=== PATIENT | female | born 1995 | race Caucasian/White ===

== ENCOUNTER 2024-02-05 11:37 | Outpatient (CLI) | payer OTHER, SELFPAY | END 2024-02-05 11:38 | disposition home or self-care (01) | LOC: NFLDREF 11:58 | PROVIDERS: Visit Provider Physician Assistant | DX: N30.00 Acute cystitis without hematuria (principal) | CPT/HCPCS: 87086 ==

== ENCOUNTER 2024-09-22 13:08 | Outpatient (CLI) | payer BC, SELFPAY | END 2024-09-22 13:09 | disposition home or self-care (01) | PROVIDERS: Visit Provider Obstetrics & Gynecology | DX: N91.5 Oligomenorrhea, unspecified (principal); Z31.69 Encounter for other general counseling and advice on procreation | CPT/HCPCS: 83001; 83498; 83520; 84146; 84270; 84402; 84403; 84443; 86706; 86762; 86787 ==

== ENCOUNTER 2024-10-26 09:51 | Outpatient (CLI) | payer BC, SELFPAY | END 2024-10-26 09:52 | disposition home or self-care (01) | LOC: US 09:54 | PROVIDERS: Visit Provider Obstetrics & Gynecology | DX: N91.5 Oligomenorrhea, unspecified (principal); R93.89 Abnormal findings on diagnostic imaging of other specified body structures; N83.01 Follicular cyst of right ovary; N83.02 Follicular cyst of left ovary | CPT/HCPCS: 76830; 76856 ==

== ENCOUNTER 2024-12-07 12:36 | Outpatient (CLI) | payer BC, SELFPAY ==
--- NOTE | 2024-12-07 13:00 | CRLHL7_ITS ---
For Patients: As a result of the Century Cures Act, medical imaging exams and procedure reports are released immediately into your electronic medical record. You may view this report before your referring provider. If you have questions, please contact your health care provider. OBSTETRICAL ULTRASOUND TRANSVAGINAL, 12/07/2024 CLINICAL INDICATION: Dating and viability. LMP: 10/08/2024 DELL by LMP: 07/15/2025 Gestational age: 8 weeks 4 days Previous ultrasound: No TECHNIQUE: Real-time galvez-scale imaging of the fetus was performed transvaginal. FINDINGS: CRL: 1.3 cm, 7 weeks 3 days; DELL 07/23/2025 heart rate: 152 BPM Gestational sac: 2.9 cm, appears within normal limits Yolk sac: 2.6 mm, appears within normal limits Right ovary: 3.3 x 2.4 x 3.0 cm, CL Left ovary: 4.3 x 1.9 x 1.9 cm IMPRESSION: 1. Single living intrauterine with sonographic gestational age of 7 weeks 3 days and sonographic due date of 07/23/2025. 2. Corpus luteal cyst of right ovary. Right-sided intramural fibroid measures 11 x 11 x 7 mm. YURIY VELAZQUEZ M.D. Diagnostic Radiologist [email or web address] Transcribed: 4:[address]/Dictated by: Yuriy Velazquez MD @ 12/07/2024 2:52:00 PM (Electronically Signed)
== END 2024-12-07 12:37 | disposition home or self-care (01) ==
LOC: US 12:37
PROVIDERS: Visit Provider Advanced Practice Midwife
DX: Z34.91 Encounter for supervision of normal pregnancy, unspecified, first trimester (principal); O34.81 Maternal care for other abnormalities of pelvic organs, first trimester; N83.11 Corpus luteum cyst of right ovary; Z3A.08 8 weeks gestation of pregnancy
CPT/HCPCS: 76817; 83021; 86592; 86703; 86704; 86706; 86762; 86787; 86803; 86850; 86900; 86901; 87086; 87340; 87491; 87591

== ENCOUNTER 2025-01-04 09:25 | Outpatient (CLI) | payer BC, SELFPAY | END 2025-01-04 09:26 | disposition home or self-care (01) | LOC: NFLDREF 01-09 05:55 | PROVIDERS: Visit Provider Obstetrics & Gynecology | DX: O99.281 Endocrine, nutritional and metabolic diseases complicating pregnancy, first trimester (principal); Z3A.11 11 weeks gestation of pregnancy; E03.8 Other specified hypothyroidism | CPT/HCPCS: 84439; 84443; 86376 ==

== ENCOUNTER 2025-02-01 11:10 | Outpatient (CLI) | payer BC, SELFPAY | END 2025-02-01 11:11 | disposition home or self-care (01) | LOC: NFLDREF 11:14 | PROVIDERS: Visit Provider Advanced Practice Midwife | DX: E03.8 Other specified hypothyroidism (principal) | CPT/HCPCS: 84443 ==

== ENCOUNTER 2025-03-01 10:59 | Outpatient (CLI) | payer BC, SELFPAY ==
--- NOTE | 2025-03-01 11:15 | CRLHL7_ITS ---
For Patients: As a result of the Century Cures Act, medical imaging exams and procedure reports are released immediately into your electronic medical record. You may view this report before your referring provider. If you have questions, please contact your health care provider. OB ULTRASOUND GREATER THAN 14 WEEKS, 03/01/2025 CLINICAL HISTORY: anatomy survey. COMPARISON: 12/07/2024. TECHNIQUE: Real time galvez scale imaging of the fetus was performed. Transabdominal imaging performed. FINDINGS: DELL by US: 07/23/2025. GA: 19 weeks 3 days. Position: Multiple positions. Placenta/Cord: Posterior. Technique: TA. Placenta tip to internal OS: 6.0 cm. Umbilical Cord: 3 vessel cord. Placental Insertion: Central. Amniotic Fluid: 2.8 cm SDP. Cervix: Visualized. Technique: TA. Length of closed cervix: 4.3 cm. Observed Structures: Calvarium/Spine Cerebellum 2.0 cm, 20 weeks 5 days Cisterna Magna 2.8 mm Nuchal Fold 3.8 mm Lateral Ventricle 5.3 mm CSP Midline Falx Choroid Plexus Spine Abdomen: Stomach Abd Cord Insert Urinary Bladder Kidneys Diaphragm Face: Nose/Lips Orbital view Profile Limbs: Upper extremities Lower extremities Hands Feet Vascular: 4 Ch Heart LVOT RVOT 3VV 3VTV BIOMETRY: BPD: 4.4 cm, 19 weeks 3 days. 47.6% HC: 16.5 cm, 19 weeks 2 days. 33.0% AC: 15.0 cm, 20 weeks 2 days. 73.2% FL: 3.1 cm, 19 weeks 5 days. 54.9% FL/AC: 29.88% HC/AC Ratio: 1.10. Heart Rate: 154 bpm. Age by this US: 19 weeks 6 days. DELL by this US: 07/20/2025. EFW: 321.84 g, 0 lb 11 oz. Percentile by DELL: 75.0% IMPRESSION: 1. Concordance of clinical and sonographic dating. 2. Normal anatomic survey. Yuriy Pak M.D. Diagnostic Radiologist [email or web address] Transcribed: 1:34 pm DW/Dictated by: Yuriy Pak MD @ 03/01/2025 12:06:00 PM (Electronically Signed)
== END 2025-03-01 11:00 | disposition home or self-care (01) ==
LOC: US 11:00
PROVIDERS: Visit Provider Advanced Practice Midwife
DX: Z34.92 Encounter for supervision of normal pregnancy, unspecified, second trimester (principal); Z3A.19 19 weeks gestation of pregnancy
CPT/HCPCS: 76805

== ENCOUNTER 2025-04-26 16:39 | Outpatient (CLI) | payer BC, SELFPAY | END 2025-04-26 16:40 | disposition home or self-care (01) | LOC: NFLDREF 05-01 04:55 | PROVIDERS: Visit Provider Midwife | DX: E03.8 Other specified hypothyroidism (principal) | CPT/HCPCS: 84443 ==

== ENCOUNTER 2025-05-24 08:30 | Outpatient (CLI) | payer BC, SELFPAY | END 2025-05-24 08:31 | disposition home or self-care (01) | LOC: NFLDREF 08:31 | PROVIDERS: Visit Provider Advanced Practice Midwife | DX: Z34.03 Encounter for supervision of normal first pregnancy, third trimester (principal) | CPT/HCPCS: 87086 ==

== ENCOUNTER 2025-06-28 09:45 | Outpatient (RCR) | payer BC, SELFPAY | END 2025-08-01 11:36 | disposition home or self-care (01) | PROVIDERS: Visit Provider Advanced Practice Midwife | DX: R10.20 Pelvic and perineal pain unspecified side (principal); N94.2 Vaginismus; Z3A.20 20 weeks gestation of pregnancy; Z51.89 Encounter for other specified aftercare | CPT/HCPCS: 97110; 97112; 97161; 97530; 97535 ==

== ENCOUNTER 2025-06-28 13:53 | Outpatient (CLI) | payer BC, SELFPAY | END 2025-06-28 13:54 | disposition home or self-care (01) | LOC: NFLDREF 06-30 12:24 | PROVIDERS: Visit Provider Advanced Practice Midwife | DX: Z34.93 Encounter for supervision of normal pregnancy, unspecified, third trimester (principal) | CPT/HCPCS: 87081; 87653 ==

== ENCOUNTER 2025-07-13 19:54 | Inpatient (IN) | payer BC, SELFPAY ==
[2025-07-13 19:08] VITALS: BP 132/77; PULSE 64
[2025-07-13 19:23] LABS: Amnisure Rom* POSITIVE
--- NOTE | 2025-07-13 20:42 | P.LDBA_ITS ---
Subjective History of Present Illness Narrative: Modesta is being admitted to Labor and Delivery for PROM. She is a 29 year old at 38.4 weeks gestation. Her full history and physical was dictated by Dash Campos CNM on 07/05/25. Please see this for details. She is unsure when her water broke today. States that she had some pink bleeding around 0430 this morning and the amount of pink tinged discharge has increased throughout the day. She continues to have small amount of fluid noted with SVE. Given that we don't know for sure when ROM occurred we will assume it was at 0430. She has felt cramping with occasional back pain throughout the day but is unsure on how often. Contractions on the TOCO were Q 8-10 minutes and tracing was reactive. We discussed expectant management vs augmentation with Pitocin or PO Cytotec. Reviewed risks with prolonged ROM and she is agreeable to Pitocin titration. On SVE she was 1.5/80/-2, she tolerated the SVE very well. Vertex confirmed by bedside US. Specific Issues/Plans G1 P 0 Partner: Roberto HAYS Pt is adopted. It is a girl! H&P completed by Dash Campos CNM on 07/05/25? # Subclinical Hypothyroid: was started on 25mcg levothyroxine prior to finally achieving ? TSH: 01/04/25: TSH 2.990, free T4. Recommend increase in levothyroxine dose to 37.5 mcg and repeat TSH and free T4 in 4 weeks. 02/01/25: 1.920 04/26: 1.030 # Pelvic pain/vaginismus Pain with intercourse Recommended pelvic floor pt, referral placed 02/01/2025 # Anemia in : 9.9 at 27w-started on iron PO qod with Vit c. Increased to 10.9. ? Imaging:? 1st trimester: 12/07/2024 8 4/7 weeks by LMP, 7 3/7 weeks by u/s? DELL: 07/23/25 by 1st trimester u/s?, SLIUP, 1 cm fibroid noted.?? Anatomy scan: 03/01/25 75% EFW 1. Concordance of clinical and sonographic dating. 2. Normal anatomic survey. Others: []? ? COVID: declined Flu: declined TDAP: 05/10/25 RSV:06/07/25 Hep b non-immune: does not work in healthcare 32wk mental health: 34wk hgb: OB - Problem Based A/P Additional Plan (1) PROM (premature rupture of membranes): Status: Acute (2) 38 weeks gestation of : Status: Acute (3) Vaginismus: Status: Acute (4) Subclinical hypothyroidism: Status: Acute (5) Anemia: Status: Acute Plan ASSESSMENT:? at 38.4 weeks gestation? GBS negative? ?complicated by: Anemia, hypothyroidism, vaginismus Labor type: prolonged PROM (>16hrs) Blood type: O+ ?? PLAN:? 1. Reviewed risks and benefits of augmentation with Pitocin or Cytotec vs expectant management. Agreeable to Pitocin augmentation given unknown and likely prolonged ROM. Pt prefers Cytotec. Pitocin to follow if needed.? 2. Candidate for analgesia of choice. Planning unmedicated .? 3. Anticipate ? 4. Expectant management at this time.? 5. IV placement for Pitocin augmentation. 6. Continuous monitoring per policy. Delivery/Labor/Induction Plan Plan: other (augmentation ) Induction method: per pitocin protocol OB Result Labs Blood Type: O (+) positive Rubella: immune RPR/VDLR: nonreactive GBS Status: negative HBsAG: negative OB Exam Physical Exam Vital signs: Pulse BP 64 132/77 07/13/25 19:08 07/13/25 19:08 Narrative: Psychiatric:? Alert and oriented x3? HEENT:? Normocephalic, atraumatic? Neck:? Supple without adenopathy or thyromegaly? Lungs:? Clear to auscultation bilaterally? Heart:? Regular rate and rhythm, no murmur, rub or gallop? Abdomen:? Soft, nontender, and gravid? Extremities:? No edema or erythema? Detailed Labor and Delivery Exam Patient Gravid: yes Dilation (cm): 1 (1.5) Effacement (%): 80 Cervix position: mid Consistency: medium Contraction Frequency: 8-10 Tachysystole: No Contraction intensity: Mild Fetus (Single) Station: -2 Amniotic Membrane Status: SROM Amniotic Membrane Fluid Description: Clear and [place] Heart Rate Baseline: 135 Monitor Accelerations: Present Monitor Decelerations: None Skilled Nursing Variability: Moderate (6-25)
[2025-07-13 21:01] VITALS: BMI 31.4
[2025-07-13 21:53] VITALS: RESP 16; TEMP 36.6
[2025-07-13 22:07] LABS: Hematocrit* 37.7 % (33.0-51.0); Hemoglobin* 12.5 gm/dL (12.0-16.0); Immature Granulocytes Abs Auto 0.04 K/uL (0.00-0.30); Immature Granulocytes Pct Auto 0.5 %; Lymphocytes Absolute Auto 2.00 K/uL (0.90-2.90); Mean Corpuscular HGB Conc 33 gm/dL (32-36); Mean Corpuscular Hemoglobin 29 pg (26-34); Mean Corpuscular Volume 88 fL (80-100); RDW Coefficient of Variation % 16.2 % (11.5-15.5); Red Blood Count* 4.30 m/uL (4.00-5.20); White Blood Count* 8.06 K/uL (4.50-11.00)
[2025-07-13] MEDS: CALCIUM CARBONATE 500 MG CHEW PO (22:07)
[2025-07-13 22:09] LABS: Slide Review Reflex No
[2025-07-13 22:12] VITALS: BP 133/77; PULSE 57
[2025-07-13] MEDS: OXYTOCIN 30 unit/500 ML in NS 30 UNIT/500 ML BAG IVPB (22:26)
[2025-07-13] MEDS: LACTATED RINGERS 1000 ML 1,000 ML 125 ML IV (22:27)
[2025-07-14] VITALS (57 sets, daily range): BP systolic 107–163; BP diastolic 55–91; PULSE 57–108; RESP 16–19; TEMP 36.6–37.4; O2SAT 96–100
[2025-07-14] MEDS: ROPIVACAINE 0.2% 100 ml 100 ML 12 MG EPIDURAL (02:33)
[2025-07-14] MEDS: LIDOCAINE 2% (PF) 5 ML VIAL EPIDURAL (02:33)
[2025-07-14] MEDS: LACTATED RINGERS 1000 ML 1,000 ML 925 ML IV (02:33)
--- NOTE | 2025-07-14 02:43 | PM.ANBPRC ---
[facility] Medical History Vaginismus ?N94.2 - Vaginismus (ICD-10) Vestibulitis of vagina ?N76.0 - Acute vaginitis (ICD-10) Oligomenorrhea ?N91.5 - Oligomenorrhea, unspecified (ICD-10) PCOS (polycystic ovarian syndrome) ?E28.2 - Polycystic ovarian syndrome (ICD-10) Bacterial vaginosis ?N76.0 - Acute vaginitis (ICD-10) ?B96.89 - Other specified bacterial agents as the cause of diseases classified elsewhere (ICD-10) UTI (urinary tract infection) ?N39.0 - Urinary tract infection, site not specified (ICD-10) Surgical History History of ankle surgery ?Z98.890 - Other specified postprocedural states (ICD-10) Family History Maternal Grandmother H/O: hysterectomy Uterine fibroid Social History Narrative: Works as an shipping and receiving assistant. . What is your current living situation?: I presently have a place to live Problems where you live: no known problems In the past 12 months, utilities in danger of being shut off: no In past 12 months, lack of transportation kept you from medical appts, meetings, work, or getting things needed for daily living: no In the past 12 mos, have been you worried that your food would run out before you had money to buy more?: never true In the past 12 mos, the food you bought just didn't last and you didn't have money to buy more?: never true Smoking Status: Never smoker How often does anyone, including family, friends and others, physically hurt you: never How often does anyone, including family, friends and others, insult or talk down to you: never How often does anyone, including family, friends and others, threaten you with harm: never How often does anyone, including family, friends and others, scream or curse at you: never Meds Home Medications and Allergies Home Medications ?Medication ?Instructions ?Recorded ?Confirmed ?Type ondansetron 4 mg disintegrating 4 mg PO Q8H PRN nausea and 12/07/24 07/13/25 Rx tablet vomiting #30 tabs Held on 07/13/25. Instructions: per patient vits 168-iron 27 mg-folic 1 cap PO DAILY 12/07/24 07/13/25 History acid 800 mcg-omega3 235 mg capsule (One-A-Day -1) ferrous sulfate 325 mg (65 mg 325 mg PO Q OTHER DAY 03/01/25 07/13/25 History iron) tablet (Feosol) levothyroxine 75 mcg tablet 37.5 mcg (1/2 x 75 mcg) PO QDAY 90 03/01/25 07/13/25 Rx days #45 tabs cholecalciferol (vitamin D3) 50 50 mcg PO QDAY 04/26/25 07/13/25 History mcg (2,000 unit) capsule Allergies Allergy/AdvReac Type Severity Reaction Status Date / Time amoxicillin Allergy Mild Rash Verified 07/12/25 09:09 latex AdvReac Mild Rash Verified 07/12/25 09:09 Results Labs Labs: Laboratory Results - last 24 hr 07/13/25 07/13/25 19:05 22:02 WBC 8.06 RBC 4.30 Hgb 12.5 Hct 37.7 MCV 88 MCH 29 MCHC 33 RDW Coeff of Maximo 16.2 H Plt Count 254 Neut % (Auto) 63.4 Lymph % (Auto) 24.8 Hand % (Auto) 10.2 Eos % (Auto) 0.9 Baso % (Auto) 0.2 Neut # (Auto) 5.11 Lymph # (Auto) 2.00 Hand # (Auto) 0.80 Eos # (Auto) 0.07 Baso # (Auto) 0.02 Abs Immat Gran (auto) 0.04 Imm/Tot Granulo (auto) 0.5 Membrane Rupture POSITIVE Blood Type O Positive Antibody Screen NEGATIVE Vital Signs Vital Signs: Last Vital Signs Temp 97.8 F 07/14/25 00:47 Pulse 70 07/14/25 02:42 Resp 19 07/14/25 00:47 BP 127/79 07/14/25 02:42 Pulse Ox 100 07/14/25 02:40 Weight: 83.234 kg Height: 162.56 cm Anesthesia Procedures Epidural Insertion Patient Location: OB Start Time: Stop Time: 02:58 Start Date: 07/14/25 Stop Date: 07/14/25 Reason for Block: procedure for pain Patient Position: sitting Performed By: Umu Doshi Preanesthetic Checklist: IV checked, risks and benefits discussed, monitors and equipment checked, pre-op evaluation, timeout performed and anesthesia consent Prep: chlorhexidine gluconate Monitoring: blood pressure monitoring, continuous pulse oximetry and heart rate Approach: midline Vertebral Space: lumbar (1-5) Epidural Technique: AINSLEY saline Needle Type: Tuohy needle Injection Technique: continuous catheter (continuous catheter) Needle gauge: 17 Needle Length (cm): 10 cm Needle Insertion Depth (cm): 8 Catheter Gauge: 19 Catheter Type: multi-orifice Catheter at skin depth (cm): 15 Test Dose Result: negative and lidocaine 1.5% with epinephrine 1 to 200,000
--- NOTE | 2025-07-14 03:11 | PM.OBPNL ---
Subjective Date Seen: 07/14/25 Narrative: Modesta was started on Pitocin and was titrated up to 2mu. Around 0100 she was feeling more pain so requested a SVE. Per RN exam she was found to be 4cm/100%/-1. She requested an epidural. Pitocin was turned off around 0145 due to decrease in variability and tachycardia in the 150-160's. It has remained off and she is silvestre regularly. Effective analgesia is now in place. Immediately after epidural placement there was a bulging membrane sac visible outside of the vagina. We waited for her to get more comfortable with the epidural before AROM of the forebag with clear fluid. She was found to be 10cm/100%/+1. Pushing has been initiated at this time. Objective Vital Signs: Last Vital Signs Temp 97.8 F 07/14/25 00:47 Pulse 89 07/14/25 03:06 Resp 19 07/14/25 00:47 BP 118/74 07/14/25 03:06 Pulse Ox 99 07/14/25 03:10 Pelvic Exam Dilation (cm): 10 Effacement (%): 100 Station: +1 Contractions Monitor mode: External Contraction Frequency: 2-4 Contraction pattern: Regular Contraction intensity: Strong/Firm Pitocin Rate (mU/min): 0 Assessment Assessment: active labor Station: +1 Amniotic Membrane Status: SROM (AROM of fore bag ) Status: Category l Heart Rate Baseline: 150 [place] Variability: Moderate (6-25) Monitor Accelerations: Present Monitor Decelerations: Variable (with some contractions ) Plan Plan: ASSESSMENT:? at 38.5 weeks gestation? GBS negative? ?complicated by: Anemia, hypothyroidism, vaginismus Labor type: prolonged PROM (>22hrs) Blood type: O+ ?? PLAN:? 1. Pitocin titration stopped due to FHR concerns. Consider restarting after FHR tracing recovers if contractions decrease in frequency of intensity. 2. Effective epidural analgesia in place. 3. Begin pushing. Anticipate ? 4. Expectant management at this time.? 5. Continuous monitoring per policy.
[2025-07-14] MEDS: LIDOCAINE 1 % PF 30 ML INJECTION (06:44)
--- NOTE | 2025-07-14 07:17 | W.PM.OBVAGDE ---
OB Procedure Vag Delivery Mother Details Mother Details: The patient is a 29 year-old, 1, Para 0, admitted on 07/13/25 at 38.5 Days gestation. : 1 Para: 1 Weeks Gestation: 38.5 Admission Date: 07/13/25 Additional Details Amniotic Membrane Status: SROM Amniotic Membrane Rupture Date: 07/13/25 Amniotic Membrane Rupture Time: 04:30 Amniotic Membrane Fluid Description: Clear Analgesia/Anesthesia Type: Epidural Waterbirth: No Pitcoin: Yes Intrapartal Events: Labor Augmentation, ROM >18 Hours and Prolonged 2nd Stage >2.5 Hrs Delivery augmentation: pitocin Labor Onset: 19:00 Complete: 03:02 Pushin:10 Heart: heart tones during second stage were category 2. Baseline 140's with good accelerations. Variable decelerations with many of the contractions. Good return to baseline. Some increased variability to marked in the last 15 minutes but not persistent. Delivery Details Delivery Date: 07/14/25 Delivery Time: 06:33 Route of delivery: Infant Gender: Female Viability: Alive; Heart Rate Present Position at Delivery: OA Delivery Details: Modesta was admitted for PROM and progressed with Pitocin augmentation. SROM noted at 0430 with clear fluid at home. A forebag was ruptured at 0302. Patient was complete at 0302 and pushing at 0310. of a viable female at left tilt in the bed. Vertex delivered OA. No shoulder. Tight nuchal cord x1 unable to reduce before delivery of the shoulders. Head kept close to the perineum and cord was reduced immediately after delivery. Body delivered easily and without incident. passed to mothers abdomen with a vigorous cry. Cord was clamped and cut at > 5 minutes. APGARS were 8 at one minute and 9 at five minutes respectively. Mouth was bulb suctioned. Intact placenta with a 3 vessel cord delivered spontaneously at 0642. Fundus firm. 2nd degree and left labial laceration identified and repaired in typical fashion. QBL 200 cc. Mother and baby stable; mother plans to breastfeed. Infant weight pending. 1 Minute Interval Total Score: 8 5 Minute Interval Total Score: 9 Additional Details Shoulder Dystocia: No Placenta Delivery Time: 06:42 Placental Delivery Description: Spontaneous Delivery repair: Vicryl Procedure Done: Global Blood Loss: 200 Laceration: Perineal - 2nd Degree (and left labial) Episiotomy Description: None Blood Loss Measurement Type: QBL Bakri Used: No Sponge/Need Count Correct: Yes Cord Vessel Description: 3 Vessels, Nuchal Cord and Tight Event Summary Status: Mother and were stable after delivery. Disposition: floor
[2025-07-14 07:49] LABS: Hematocrit* 36.3 % (33.0-51.0); Hemoglobin* 12.0 gm/dL (12.0-16.0); Mean Corpuscular HGB Conc 33 gm/dL (32-36); Mean Corpuscular Hemoglobin 29 pg (26-34); Mean Corpuscular Volume 88 fL (80-100); Red Blood Count* 4.13 m/uL (4.00-5.20); White Blood Count* 11.86 K/uL (4.50-11.00)
[2025-07-14 07:51] LABS: Slide Review Reflex No
[2025-07-14 08:09] LABS: Alanine Aminotransferase* 16 U/L (4-35); Aspartate Amino Transferase* 38 U/L (12-35); Blood Urea Nitrogen* 11 mg/dL (5-24); Creatinine* 0.7 mg/dL (0.5-1.5); Est. Creatinine Clearance* 100.55; Estimated Glomerular Filt Rate 119 ml/min
[2025-07-14] MEDS: DOCUSATE SODIUM 100 MG CAPSULE PO (08:30)
[2025-07-14] MEDS: IBUPROFEN 600 MG TABLET PO ×2 (08:30→16:41)
--- NOTE | 2025-07-14 08:33 | PM.EN ---
Chart Event Note Time Seen by Provider: 08:33 Date Seen: 07/14/25 Chart Event Note: Modesta has had elevated blood pressures at least 4 hours apart and since delivery has had consistently elevated BP in the mild range. Preeclampsia labs were done this morning and she has a slightly elevated AST, no urine was tested due to her immediate status. Will continue monitoring BP, currently meets criteria for gestational hypoertension.
[2025-07-14] MEDS: LANOLIN CREAM 1 APPLIC TOPICAL (10:26)
[2025-07-15 00:05] VITALS: BP 124/76; PULSE 80; RESP 20; TEMP 36.6; O2SAT 96
[2025-07-15 04:34] VITALS: BP 131/83; PULSE 79; RESP 16; TEMP 36.6; O2SAT 95
[2025-07-15] MEDS: LEVOTHYROXINE 75 MCG TABLET 37.5 MCG PO (07:11)
[2025-07-15 07:34] VITALS: BP 127/77; PULSE 69; RESP 16; TEMP 36.9; O2SAT 96
--- NOTE | 2025-07-15 08:11 | P.DS_ITS ---
DS: Providers Provider Date Seen: 07/15/25 Date of admission: 07/13/25 19:54 Primary care physician: Not a Local Provider Admitting Clinician: Yoli Campos CNM Attending Physician on discharge: Yoli Campos CNM Date of Discharge: 07/15/25 DS: Diagnosis Discharge Diagnosis (1) care following vaginal delivery: Status: Acute (2) Lactating mother: Status: Acute (3) Gestational hypertension: Status: Acute Exam Narrative: Exam Narrative: GENERAL APPEARANCE:? normal affect, alert, no distress? MOOD:? appropriate? CHEST:? clear to auscultation and percussion? HEART:? regular rate and rhythm? BREASTS: soft, nontender, no erythema, nipples [] intact? ABDOMEN:? soft, non-tender the uterine fundus is [] and is appropriate for the stage of recovery. Incision [].? PERINEUM:? mild edema of the perineum, there is a [] that is healing well.? EXTREMITIES:? normal and no edema? Const: Vital Signs, click to edit/add: Vital Signs - 24 hr 07/14/25 08:15 07/14/25 08:30 07/14/25 08:45 Temperature Pulse Rate 57 L 60 62 Pulse Rate [Pulse Oximeter] Respiratory Rate Blood Pressure 152/82 H 141/76 H 137/63 Blood Pressure [Le ft Arm] Pulse Oximetry Oxygen Delivery Me thod 07/14/25 12:45 07/14/25 16:20 07/14/25 20:26 Temperature 99.3 F 98.3 F 98.2 F Pulse Rate Pulse Rate [Pulse Oximeter] 69 85 76 Respiratory Rate 16 18 18 Blood Pressure Blood Pressure [Le ft Arm] 123/72 129/78 117/75 Pulse Oximetry 96 97 97 Oxygen Delivery Me thod Room Air Room Air Room Air 07/15/25 00:05 07/15/25 04:34 07/15/25 07:34 Temperature 98 F 97.8 F 98.5 F Pulse Rate Pulse Rate [Pulse Oximeter] 80 79 69 Respiratory Rate 20 16 16 Blood Pressure Blood Pressure [Le ft Arm] 124/76 131/83 127/77 Pulse Oximetry 96 95 96 Oxygen Delivery Me thod Room Air Room Air Room Air Documenting provider has reviewed patient's vital signs: yes OB - DS: Summary Hospital Course Hospital Course: Modesta is a 29 year old G 1 P 1 at 38.5 weeks gestation that was admitted to the Center on 07/13/25 for PROM. She had an vaginal delivery complicated by ROM >24 hours. She delivered a viable female infant. She is breast feeding and states that it is improving. Baby is very fussy at breast until she latches but nurses well when she does. Modesta states that her nipples are sore and was encouraged to work on improving latch. the patient has done well. Her pain is well controlled with current medications.? She has no new complaints.? Urinary output is adequate and she is voiding without difficulty.? Has a good appetite, is tolerating a general diet, is passing flatus, and has had a bowel movement.? Has small amount of rubra lochia.? She is ambulating well. She is requesting to discharge home today. We discussed increased risk of readmission with discharge before 48 hours with gestational hypertension as well as additional support for if she stays. She still desires discharge later today but discussed that if she changes her mind we could cancel her discharge order. She declines prescriptions for ibuprofen and Colace as she already has these at home to take. Peripartum Data delivery method: Vaginal Laceration description: Perineal - 2nd Degree Episiotomy description: None complications: none [place] Gender: Female Infant Discharge Plan: Home Status at Discharge Functional status at discharge: independent ambulation Overall status at discharge: patient is progressing back to baseline Time Spent with Patient Time attestation: Total time spent providing and/or coordinating discharge services: Discharge Plan Discharge Disposition: Home, Self-Care Date of Admission: 07/13/25 19:54 Attending Provider on Discharge: Yoli Campos Primary Care Provider: Provider,Not a Local Condition: Stable Anticipated Discharge Date/Time: 07/15/25 18:00 Discharge Medications: Continued cholecalciferol (vitamin D3) 50 mcg (2,000 unit) capsule 50 mcg PO QDAY One-A-Day -1 27 mg iron- 800 mcg-235 mg capsule 1 cap PO DAILY ondansetron 4 mg tablet,disintegrating 4 mg PO Q8H PRN (Reason: nausea and vomiting) Qty: 30 0RF ferrous sulfate [Feosol] 325 mg (65 mg iron) tablet 325 mg PO Q OTHER DAY levothyroxine 75 mcg tablet 37.5 mcg PO QDAY 90 Days Qty: 45 1RF Discharge Orders: Discharge Order (Routine); Ordered 07/15/25 Ordered By: Yoli Campos Patient Education: OB High Blood Pressure DC, OB Vaginal/Breast Feeding Additional Instructions: Discharge instructions were reviewed with the patient including signs and symptoms of infection and home going medications Nothing vaginally for 6 weeks: no tampons or intercourse Do not drive while taking narcotic pain medication(s) Off Work or School for 8 weeks Symptoms to report to doctor: * Bleeding that saturates more than one pad per hour * Passing clots larger than the size of a golf ball * Pain not relieved by prescribed medication * Fever above 100.4 degrees Fahrenheit * A foul vaginal odor * Difficulty in emotions, mood, and functions * Thoughts of hurting yourself and/or * Painful, reddened area in your breast * Any drainage, redness, or tenderness in your IV/epidural site * Severe headache that doesn't improve after taking medications * Changes in vision, including temporary loss of vision, blurred vision, and/or light sensitivity * Upper abdominal pain (usually under ribs on the right side) * Decrease in urination or painful, frequent urinating * Chest pain * Shortness of breath * Tenderness or pain with redness and/swelling in the calf(s) of your leg Follow [facility] for a BP check in 3-5 days Call with BP greater than or equal to 160/110 2-week visit: discuss infant feeding concerns, review control options and screen for anxiety/depression. 6-week visit for an annual exam. consultation services are available to all mothers and babies for the first year after delivery.? To make an appointment, please call [phone]. Activity Level: Activity as Tolerated Discharge Diet: Regular Follow Up Appointments: Provider,Not a Local [Primary Care Provider, Family Practice] [facility] [Provider Group] Forms: [employer] Info Instructions
--- NOTE | 2025-07-15 10:45 | PM.ANPOST ---
Post Anesthesia Note Post Anesthesia Note Patient seen: Inpatient Respiratory Status: adequate Cardiovascular Status: adequate Mental Status: baseline Pain: adequate Temp: baseline Anesthetic awareness: N/A Complications: none Follow care: none
[2025-07-15 12:05] VITALS: BP 120/72; PULSE 68; RESP 20; TEMP 36.7; O2SAT 96
[2025-07-15] MEDS: IBUPROFEN 600 MG TABLET PO (16:06)
[2025-07-15 20:30] VITALS: BP 119/71; PULSE 67; RESP 16; TEMP 36.5; O2SAT 97
[2025-07-16 04:25] VITALS: BP 125/81; PULSE 63; RESP 16; TEMP 36.8; O2SAT 96
[2025-07-16] MEDS: LEVOTHYROXINE 75 MCG TABLET 37.5 MCG PO (07:31)
[2025-07-16] MEDS: DOCUSATE SODIUM 100 MG CAPSULE PO (07:32)
[2025-07-16 07:37] VITALS: BP 129/65; PULSE 61; RESP 16; TEMP 36.6; O2SAT 96
--- NOTE | 2025-07-16 08:19 | P.DS_ITS ---
DS: Providers Provider Date Seen: 07/16/25 Date of admission: 07/13/25 19:54 Primary care physician: Not a Local Provider Admitting Clinician: Yoli Campos CNM Attending Physician on discharge: Gayle CABRERA APRN Date of Discharge: 07/16/25 DS: Diagnosis Discharge Diagnosis (1) Lactating mother: Status: Acute (2) care following vaginal delivery: Status: Acute (3) Gestational hypertension: Status: Acute Exam Narrative: Exam Narrative: GENERAL APPEARANCE:? normal affect, alert, no distress MOOD:? appropriate CHEST:? clear to auscultation HEART:? regular rate and rhythm ABDOMEN:? soft, non-tender the uterine fundus is [] cm At Umbilicus, Midline and is appropriate for the stage of recovery. PERINEUM:? mild edema of the perineum, 1.5cm hematoma of right labia noted and shown to FOB for comparision sake, there is a Perineal Laceration,?that has mild edema, is well approximated and without erythema. EXTREMITIES:? normal and mild edema Const: Vital Signs, click to edit/add: Vital Signs - 24 hr 07/15/25 12:05 07/15/25 20:30 07/16/25 04:25 Temperature 98.1 F 97.7 F 98.2 F Pulse Rate [Pulse Oximeter] 68 67 63 Respiratory Rate 20 16 16 Blood Pressure [Le ft Arm] 120/72 119/71 125/81 Pulse Oximetry 96 97 96 Oxygen Delivery Me thod Room Air Room Air Room Air 07/16/25 07:37 Temperature 97.9 F Pulse Rate [Pulse Oximeter] 61 Respiratory Rate 16 Blood Pressure [Le ft Arm] 129/65 Pulse Oximetry 96 Oxygen Delivery Me thod Room Air OB - DS: Summary Hospital Course Hospital Course: Modesta is a 29 y.o. G 1 P 1001 who was admitted [facility] PROM at term.? She had a NVD that was complicated by Prolonged ROM and 2nd stage of 2.5 hours. The patient feels well.? The pain is well controlled with current medications.? She has no new complaints.? She is breast feeding and reports things are going well with controlled nipple pain. the patient has done well.? Elevated BPs were noted in the mild to moderate range that spontaneously resolved. HELLP labs were normal. Vitals have been stable and normotensive since 07/14 at 0845. she denies ALLEN, vision changes or RUQ pain. She has remained afebrile.? Has a good appetite, is tolerating a general diet.? She is voiding without difficulty but with some burning.? She is passing gas and has had 2 bowel movements. She is ambulating and denies any dizziness.? Has small amount of rubra lochia. She is planning condoms for prevention.? ?? Problems: GHTN? ?? plan:? Discharge home with baby.? Follow up in 3 days, 2 weeks and 6 weeks.? To stop levo immediately after delivery Recheck TSH at 6w PP , may see if needed? GHTN diagnosed by elevated BP greater than 4 hours apart but spontaneously resolved in the early PP period? Labs WNL or stable with trending? Discharge home with BP cuff if does not already have one. To check BPs twice daily at home and notify us of BPs >140/90 Follow up in 3-5 days? Call for signs/symptoms of preeclampsia? Peripartum Data Infant delivery method: Vaginal Laceration description: Perineal - 2nd Degree Episiotomy description: None complications: none Gender: Female Discharge Plan: Home Status at Discharge Functional status at discharge: independent ambulation Overall status at discharge: patient is progressing back to baseline Time Spent with Patient Time attestation: Total time spent providing and/or coordinating discharge services: Time spent: Less than 30 minutes Discharge Plan Discharge Disposition: Home, Self-Care Date of Admission: 07/13/25 19:54 Attending Provider on Discharge: Keeley Traylor Primary Care Provider: Provider,Not a Local Condition: Stable Anticipated Discharge Date/Time: 07/15/25 18:00 Discharge Medications: Continued cholecalciferol (vitamin D3) 50 mcg (2,000 unit) capsule 50 mcg PO QDAY One-A-Day -1 27 mg iron- 800 mcg-235 mg capsule 1 cap PO DAILY ondansetron 4 mg tablet,disintegrating 4 mg PO Q8H PRN (Reason: nausea and vomiting) Qty: 30 0RF ferrous sulfate [Feosol] 325 mg (65 mg iron) tablet 325 mg PO Q OTHER DAY levothyroxine 75 mcg tablet 37.5 mcg PO QDAY 90 Days Qty: 45 1RF Discharge Orders: Discharge Order (Routine); Ordered 07/16/25 Ordered By: Keeley Traylor Patient Education: OB High Blood Pressure DC, OB Over the Counter Medication Information, OB Vaginal/Breast Feeding Additional Instructions: Discharge instructions were reviewed with the patient including signs and symptoms of infection and home going medications Nothing vaginally for 6 weeks: no tampons or intercourse Do not drive while taking narcotic pain medication(s) Off Work or School for 6 weeks Symptoms to report to doctor: * Bleeding that saturates more than one pad per hour * Passing clots larger than the size of a golf ball * Pain not relieved by prescribed medication * Fever above 100.4 degrees Fahrenheit * A foul vaginal odor * Difficulty in emotions, mood, and functions * Thoughts of hurting yourself and/or * Painful, reddened area in your breast * Any drainage, redness, or tenderness in your IV/epidural site * Severe headache that doesn't improve after taking medications * Changes in vision, including temporary loss of vision, blurred vision, and/or light sensitivity * Upper abdominal pain (usually under ribs on the right side) * Decrease in urination or painful, frequent urinating * Chest pain * Shortness of breath * Tenderness or pain with redness and/swelling in the calf(s) of your leg [facility] for a BP check in 3-5 days Call with BP greater than or equal to 140/90 2-week visit: discuss infant feeding concerns, review control options and screen for anxiety/depression. 6-week visit for an annual exam. consultation services are available to all mothers and babies for the first year after delivery.? To make an appointment, please call [phone]. Activity Level: Activity as Tolerated and No strenuous activity Discharge Diet: Regular Follow Up Appointments: [facility] [Provider Group] Forms: Soft[employer] Info Instructions
== END 2025-07-16 12:00 | disposition home or self-care (01) | DRG 560 ==
LOC: OB OUT 19:55 → OB 19:55
PROVIDERS: Advanced Practice Midwife; Admitting Provider Advanced Practice Midwife; Visit Provider Advanced Practice Midwife
DX: O42.92 Full-term premature rupture of membranes, unspecified as to length of time between rupture and onset of labor (principal); O63.1 Prolonged second stage (of labor); O13.5 Gestational [pregnancy-induced] hypertension without significant proteinuria, complicating the puerperium; O70.1 Second degree perineal laceration during delivery; O99.284 Endocrine, nutritional and metabolic diseases complicating childbirth; E03.8 Other specified hypothyroidism; O99.02 Anemia complicating childbirth; D64.9 Anemia, unspecified; N94.2 Vaginismus; Z3A.38 38 weeks gestation of pregnancy; Z37.0 Single live birth
CPT/HCPCS: 01967; 36415; 82565; 84112; 84450; 84460; 84520; 85025; 85027; 86592; 86850; 86900; 86901; A9270; J2003; J2795; J7120

== ENCOUNTER 2025-07-18 12:11 | Outpatient (CLI) | payer BC, SELFPAY | END 2025-07-18 12:12 | disposition home or self-care (01) | PROVIDERS: Visit Provider Advanced Practice Midwife | DX: O13.3 Gestational [pregnancy-induced] hypertension without significant proteinuria, third trimester (principal) | CPT/HCPCS: 82565; 84450; 84460 ==

== ENCOUNTER 2025-07-22 10:05 | Outpatient (CLI) | payer BC, SELFPAY | END 2025-07-22 10:06 | disposition home or self-care (01) | PROVIDERS: Visit Provider Physician Assistant | DX: O13.3 Gestational [pregnancy-induced] hypertension without significant proteinuria, third trimester (principal) | CPT/HCPCS: 82565; 84450; 84460; 84520 ==

== ENCOUNTER 2025-07-29 10:56 | Outpatient (CLI) | payer BC, SELFPAY ==
--- NOTE | 2025-07-29 14:53 | W.PM.LAC.MC ---
Consult Note - Mom Date of Visit Date of visit: 07/29/25 Reason for consultation: Assistance Needed and Low Milk Supply Visit Code: Visit Patient's Information Phone number: [phone] : 1 Para: 1 Allergies amoxicillin Allergy (Mild, Verified 07/29/25 09:05) Rash latex Adverse Reaction (Mild, Verified 07/29/25 09:05) Rash Mother's medical history: PCOS Mother's Medical History: Medical History (Updated 07/20/25 @ 00:01 by Background Daemon) Anemia ?D64.9 - Anemia, unspecified (ICD-10) Subclinical hypothyroidism ?E03.8 - Other specified hypothyroidism (ICD-10) Vaginismus ?N94.2 - Vaginismus (ICD-10) Vestibulitis of vagina ?N76.0 - Acute vaginitis (ICD-10) Oligomenorrhea ?N91.5 - Oligomenorrhea, unspecified (ICD-10) PCOS (polycystic ovarian syndrome) ?E28.2 - Polycystic ovarian syndrome (ICD-10) Bacterial vaginosis ?N76.0 - Acute vaginitis (ICD-10) ?B96.89 - Other specified bacterial agents as the cause of diseases classified elsewhere (ICD-10) UTI (urinary tract infection) ?N39.0 - Urinary tract infection, site not specified (ICD-10) Delivery Information Delivery type: Vaginal Gestational Age: 38 Gestational Weight For Age: AGA Weight: 3.505 kg Discharge Weight: 3.302 kg Percentage weight loss: 5.8 Baby's Information Baby's Age at Visit: 15 days Baby's Provider or Clinic: [facility] Jaundice: No Past Experience Past Experience: No Current Frequency of Day Feedings: every 2-3 hrs Frequency of Night Feedings: 3-4 hrs Both Breasts: Yes Suck: strong Latch: seems ok Length of Time: 15-30 min on 1st side, then 15-20 on 2nd Pumping Pumping: Yes Quantity Pumped: just one time last week and got 1.5 oz Supplementing EBM Supplement: No Formula Supplement: No Baby Elimination Number of Wet Diapers a Day: ea feeding Number of BM a Day: lots thru day, 7 or 8 Breast/Nipple Condition Breast Information: Breasts are symmetrical with rounded lower quadrants, intramammary distance is less than 1.5 inches. No erythema. Nipples are supple, everted prior to feeding. Mom felt her milk come in last week after getting home from the hospital, her breasts felt full For the last several days she hasn't had the same sense of fullness; she is still able to easily express drops of milk prior to feeding to help baby latch Breast Shape: Round Maternal Nipple Condition - Left: Common Nipple Maternal Nipple Condition - Right: Common Nipple Sore Nipples: Yes Interventions for Sore Nipples: Lansinoh/Nipple Cream and Soothies/Hydrogel Pads (has them at home but hasn't tried yet) Baby Assessment Skin: Normal Tongue/frenulum: Normal/elastic Palate: Average Lips: Relaxed and Symmetrical Jaw Alignment: Symmetrical Mucosa: Qulin, moist Onsite Observation Pre-Feed weight: 3.46 kg Post-Feed weight: 3.5 kg Milk Transferred (mL): 40 Position: Cross cradle and Football Attachment/latch-on achieved: Easily Suck pattern: Suck burst and normal rest and Extended suck phase (more on left than righ tside) Swallow: Audible, consistent (nelli on right breast) Behavior following feed: Alert, fussy Pre-Nursing Left Nipple: Within Normal Limits Pre-Nursing Right Nipple: Within Normal Limits Post-Nursing Left Nipple: Blisters (small blister and creasing of nipple noted in cross cradle, less when mom tried football hold) Post-Nursing Right Nipple: Within Normal Limits Assessments/Interventions Assessments/Interventions: Babe latched to mom's LEFT breast, latched deeply after several tries and stayed nursing for 121 minutes. Transferred 10 ml of milk Babe then latched to mom's RIGHT breast, latched more quickly and nursed for another 13 minutes. Transferred 30 ml of milk. Relatched babe to mom's left breast without sustained nursing Total volume transferred: 40 ml Babe offered 30 ml of EBM and babe took this down quite readily Education provided: Early feeding cues to maximize timing of latching, Asymmetric latch technique for wide/deep latch to increase milk, Transfer for baby and increase comfort for mom, Supply/demand nature of milk supply, Need for frequent stimulation/milk removal, Sore nipple treatment options (Hydrogels mom has at home to help calm nipple pain) and Pumping for milk management Feeding Plan: Breastfeed for 10 on each breast, listening for active swallowing, breast compression to help get more milk to baby Pump both breasts for: 15-20 minutes after each feeding; a full 20 minutes if pumping instead of Reviewed pump settings for mom for her Spectra pump Feed baby 30-45 ml of pumped milk and/or formula every 2-3 hours based on feeding cues Use a syringe/feeding tube, cup, or bottle for feedings based on preference Rest, and repeat every 2-3 hours, watch for early feeding cues Try skin to skin to increase milk production Follow-Up Suggested follow up: Appointment in 1-3 days Time Spent Time spent with patient (min): 90 Meds Home Medications and Allergies Home Medications ?Medication ?Instructions ?Recorded ?Confirmed ?Type vits 168-iron 27 mg-folic 1 cap PO DAILY 12/07/24 07/29/25 History acid 800 mcg-omega3 235 mg capsule (One-A-Day -1) ferrous sulfate 325 mg (65 mg 325 mg PO Q OTHER DAY 03/01/25 07/29/25 History iron) tablet (Feosol) cholecalciferol (vitamin D3) 50 50 mcg PO QDAY 04/26/25 07/29/25 History mcg (2,000 unit) capsule nifedipine 60 mg tablet,extended 60 mg PO QDAY #60 tabs 07/18/25 07/29/25 Rx release Allergies Allergy/AdvReac Type Severity Reaction Status Date / Time amoxicillin Allergy Mild Rash Verified 07/29/25 09:05 latex AdvReac Mild Rash Verified 07/29/25 09:05
== END 2025-07-29 10:57 | disposition home or self-care (01) ==
LOC: OB LAC 10:58
PROVIDERS: Visit Provider Obstetrics & Gynecology
DX: Z39.1 Encounter for care and examination of lactating mother (principal)
CPT/HCPCS: G0463

== ENCOUNTER 2025-08-12 13:10 | Outpatient (CLI) | payer BC, SELFPAY ==
--- NOTE | 2025-08-12 14:42 | W.PM.LAC.MF ---
Follow-Up Note: Mom Date of visit Date of visit: 08/12/25 Reason for consultation: Low Milk Supply Visit Code: Visit Patient's Information Allergies amoxicillin Allergy (Mild, Verified 07/29/25 09:05) Rash latex Adverse Reaction (Mild, Verified 07/29/25 09:05) Rash Delivery Information Delivery type: Vaginal Gestational Age: 38 Gestational Weight For Age: AGA Weight: 3.505 kg Last Weight: 3.657 kg (on 08/01/25 in clinic) Baby's Information Baby's name: Debbie Baby's Age at Visit: 4w 1d Baby's Provider or Clinic: [facility] Current Frequency of Day Feedings: every 3 hrs Frequency of Night Feedings: one 4hr stretch Both Breasts: Yes Suck: strong Latch: painful on the left, comes and goes Length of Time: usually 10min on LEFT side, 5 min on RIGHT side Pumping Pumping: Yes Quantity Pumped: occas, gets up to 2.5 oz if its been 4-6 hrs since last feed/pump Supplementing EBM Supplement: Yes Formula Supplement: Yes (taking 2 oz after ) Baby Elimination Number of Wet Diapers a Day: ea feeding Number of BM a Day: several/day Breast/Nipple Assessment Breast/Nipple Assessment: Breasts are symmetrical with rounded lower quadrants, intramammary distance is less than 1.5 inches. No erythema. Nipples are supple, everted prior to feeding. Modesta reports she had some breast changes during , but thinks they were minimal and not as much as expected. Breast Shape: Round Engorgement: No Maternal Nipple Condition - Left: Common Nipple Maternal Nipple Condition - Right: Common Nipple Sore Nipples: Yes (LEFT > RIGHT) Interventions for Sore Nipples: Lansinoh/Nipple Cream Onsite Observation Pre-feed weight: 4.206 kg Post-Feed weight: 4.248 kg Milk Transferred (mL): 42 Pre-Nursing Left Nipple: Blisters (at the 3o'clocl position, white filled bleb noted) Pre-Nursing Right Nipple: Within Normal Limits Post-Nursing Left Nipple: Blisters (bleb noted to be more reddened and full with white matter) and Creased/Beveled (slightly noted) Post-Nursing Right Nipple: Within Normal Limits Assessments/Interventions Assessments/Interventions: Babe latched to mom's RIGHT breast, latched well, more deeply than mom usually gets and more comfortable; and stayed nursing for 6 minutes. Transferred 18 ml of milk Saritha then latched to mom's LEFT breast, latched more easily, deeply than usual and mom reports still painful but less painful than at home, and nursed for another 9 minutes. Transferred 24 ml of milk. Initially on mom's left side, baby's neck was tweaked with her left ear bent up to her left shoulder; gently straightened baby's neck out for more open space and baby relaxed into an even suckling pattern. Discussed this positioning with mom. Saritha needed gentle support to stay latched deeply. Total volume transferred was 42 ml; last visit on 07/29/25, baby transferred a total of 40 ml in the feeding. While mom's supply has not increased since then, encouraged that it has not decreased either. Milk supply In reviewing mom's health history, noted a history of subclinical hypothyroidism. Spoke with Yoli Campos CNM and reviewed clinical picture and requesting thyroid levels be checked given the correlation between hypo/hyper thyroidism and milk supply issues. Yoli agreed, and Modesta will get thyroid function labs drawn today prior to leaving. Reviewed with Modesta, the importance of pumping after feedings if she is able given baby is not nursing a long time due to low milk supply and getting frustrated at lack of flow. Recommend pumping after as many feedings as able (everyone would be great, but might not be relistic) for 10-15 minutes. If pump in place of , goal of 20-30 minutes/pumping. Initially Modesta might not get much milk, but the stimulation to tell her body to make milk is ciritcal. Discussed food/fluid needs: H20, can try oatmeal with flaxseed and mcneill's yeast Galactogogues discussed: mixed reviews if they are helpful; Go Lacta tea is found beneficial by some Nipple bleb This is likely the cause of the ongoing pain along with the shifted nipple position Discussed moving baby down so start with nose and nipple across from each other; given baby can get deeper latch on the right side without creasing low expectancy this is a posterior tongue tie; baby also curls edges and front of tongue up nicely with wide open mouth Bleb treatment: steroid cream topically 3-4 times/day after feedings for 3-5 days until bleb opened and draining, nipple cream after other feedings for skin softening, sunflower lecithin. Avoid unroofing bleb at this point due to risk of infection. Discussed with mom as the bleb opens, she will likely get a string of milk out and this is a good thing and should help decrease the pain Education provided: Asymmetric latch technique for wide/deep latch to increase milk, Transfer for baby and increase comfort for mom, Supply/demand nature of milk supply, Need for frequent stimulation/milk removal, Sore nipple treatment options and Pumping for milk management (importance of pumping to try and increase supply even if not getting a lot of milk with pumping) Follow-Up Suggested follow up: Appointment as needed Recommend mom be seen by provider for:: 6 week check up, follow thyroid labs Time Spent Time spent with patient (min): 75 Meds Home Medications and Allergies Home Medications ?Medication ?Instructions ?Recorded ?Confirmed ?Type vits 168-iron 27 mg-folic 1 cap PO DAILY 12/07/24 07/29/25 History acid 800 mcg-omega3 235 mg capsule (One-A-Day -1) ferrous sulfate 325 mg (65 mg 325 mg PO Q OTHER DAY 03/01/25 07/29/25 History iron) tablet (Feosol) cholecalciferol (vitamin D3) 50 50 mcg PO QDAY 04/26/25 07/29/25 History mcg (2,000 unit) capsule nifedipine 60 mg tablet,extended 60 mg PO QDAY #60 tabs 07/18/25 07/29/25 Rx release Allergies Allergy/AdvReac Type Severity Reaction Status Date / Time amoxicillin Allergy Mild Rash Verified 07/29/25 09:05 latex AdvReac Mild Rash Verified 07/29/25 09:05
== END 2025-08-12 13:11 | disposition home or self-care (01) ==
LOC: OB LAC 13:11
PROVIDERS: Visit Provider Obstetrics & Gynecology
DX: Z39.1 Encounter for care and examination of lactating mother (principal)
CPT/HCPCS: G0463

== ENCOUNTER 2025-08-12 14:29 | Outpatient (CLI) | payer BC, SELFPAY | END 2025-08-12 14:30 | disposition home or self-care (01) | LOC: NFLDREF 14:30 | PROVIDERS: Visit Provider Advanced Practice Midwife | DX: Z39.1 Encounter for care and examination of lactating mother (principal) | CPT/HCPCS: 84443 ==